=== PATIENT | male | born 1950 | race Caucasian/White ===

== ENCOUNTER 2017-01-23 21:41 | Emergency (ER) | payer BC, OTHER ==
[~2017-01-23] VITALS: Ht 182.9 cm; Wt 100.7 kg
[2017-01-23 21:52] VITALS: BP 126/68
== END 2017-01-23 22:58 | disposition home or self-care (01) ==
LOC: ED 22:57
DX: N40.1 Benign prostatic hyperplasia with lower urinary tract symptoms (principal); R33.8 Other retention of urine; E03.9 Hypothyroidism, unspecified; E78.00 Pure hypercholesterolemia, unspecified; Z87.891 Personal history of nicotine dependence; Z98.890 Other specified postprocedural states
CPT/HCPCS: 51702

== ENCOUNTER 2017-02-15 18:10 | Emergency (ER) | payer OTHER ==
[~2017-02-15] VITALS: Ht 182.9 cm; Wt 96.8 kg
[2017-02-15 18:11] VITALS: BP 183/70
== END 2017-02-15 19:09 | disposition home or self-care (01) ==
LOC: ED 19:05
DX: L76.31 Postprocedural hematoma of skin and subcutaneous tissue following a dermatologic procedure (principal); E03.9 Hypothyroidism, unspecified; E78.00 Pure hypercholesterolemia, unspecified; Z88.1 Allergy status to other antibiotic agents
CPT/HCPCS: 99281

== ENCOUNTER → 2020-09-20 | Outpatient (CLI) | payer MEDICARE | END | disposition home or self-care (01) | LOC: CFH 12:40 | PROVIDERS: ATTEND Family Medicine | DX: N62 Hypertrophy of breast (principal); N63.10 Unspecified lump in the right breast, unspecified quadrant | CPT/HCPCS: 76642; 77066; G0279 ==